=== PATIENT | female | born 1960 | race Caucasian/White ===

== ENCOUNTER → 2019-05-26 10:08 | Outpatient (CLI) | payer BC, SELFPAY ==
--- NOTE | ~2019-05-26 | DEXA_ITS ---
Bone Density Report Name: Mony Epstein Age: 59 Sex: Female Ethnicity: White Date of : 1960 Indication: postmenopausal; screening for osteoporosis; parental hip fracture; Referring Provider: JENNIFER FANG Study: Bone densitometry was performed. Exam Date: May 26, 2019 Accession number: [id number] Bone Density: Region BMD T-score Z-score Classification AP Spine (L1-L4) 0.938 -1.0 0.4 Normal Femoral Neck (Left) 0.726 -1.1 0.1 Osteopenia Total Hip (Left) 0.823 -1.0 -0.1 Normal Femoral Neck (Right) 0.710 -1.3 0.0 Osteopenia Total Hip (Right) 0.853 -0.7 0.2 Normal Total Hip Mean 0.838 -0.9 0.1 Normal World Health Organization criteria for BMD impression classify patients as: Normal (T-score at or above -1.0), Osteopenia (T-score between -1.0 and -2.5), or Osteoporosis (T-score at or below -2.5). 10-year Fracture Risk(1): Major Osteoporotic Fracture 14% Hip Fracture 0.5% Reported Risk Factors: [place] (), Neck BMD=0.710, BMI=25.5, parental fracture (1) FRAX(R) Version 3.08. Fracture probability calculated for an untreated patient. Fracture probability may be lower if the patient has received treatment. Previous Exams: Region Exam Age BMD T-score BMD Change BMD Change Date g/cm2 vs Baseline vs Previous AP Spine(L1-L4) 05/26/2019 59 0.938 -1.0 -0.075* -0.044* 01/08/2016 55 0.982 -0.6 -0.032* -0.032* 01/04/2014 53 1.013 -0.3 Total Hip(Left) 05/26/2019 59 0.823 -1.0 -0.025 -0.018 01/08/2016 55 0.841 -0.8 -0.008 -0.008 01/04/2014 53 0.849 -0.8 Total Hip(Right) 05/26/2019 59 0.853 -0.7 -0.038* -0.015 01/08/2016 55 0.868 -0.6 -0.023 -0.023 01/04/2014 53 0.891 -0.4 *Denotes significance at 95% confidence level, LSC for AP Spine = 0.022 g/cm2, LSC for Total Hip = 0.027 g/cm2 Clinical Information Provided by Patient: Parent has had a hip fracture Has used the following medications: Vitamin D Patient maximum height was 64.8 Menopause Age: 53 Drinks caffeinated beverages Onset of menses at age 13 Number of children 2 Impression: The patient has low bone mass, based on the Right Femoral Neck T-score. The patient has an estimated ten-year risk of hip fracture of 0.5% and an estimated ten-year risk of major fracture of 14%, based on the WHO FRAX algorithm. The patient has risk facto
--- NOTE | ~2019-05-26 | MM_ITS ---
EXAMINATION: MM screening abhi BI w [place] HISTORY: Screening mammogram TECHNIQUE: Craniocaudal and mediolateral oblique 3-D tomosynthesis images were obtained and synthetic 2-D images were generated. CAD analysis was submitted and interpreted. COMPARISON: 04/07/2018 bilateral digital screening mammogram 10/22/2017 and 04/01/2017 diagnostic right digital mammogram and limited right breast ultrasound examin ations 03/13/2017, 03/05/2016, 01/12/2015 bilateral digital screening mammogram examinations BREAST PARENCHYMAL COMPOSITION: There are scattered areas of fibroglandular density. FINDINGS: Stable mild fibroglandular asymmetry. There is a 5.7 x 8.5 mm circumscribed opacity situated posteriorly in the mid to upper right breast o n MLO view diagnostic right mammogram is recommended, as well as ultrasound examination. Otherwise there is no evidence of suspicious mass, calcification, or architectural distortion to sugg est malignancy in either breast. There has been no other suspicious interval change. IMPRESSION: 1. Right breast mass. 2. Diagnostic right mammogram and right breast ultrasound examination are recommended BI-RADS Category 0: Incomplete: Needs additional imaging evaluation. Reviewed, dictated and finalized at location A. AULIC STRAINER OPERATOR IMPRESSION: 1. Right breast mass. 2. Diagnostic right mammogram and right breast ultrasound examination are recom mended BI-RADS Category 0: Incomplete: Needs additional imaging evaluation.
== END ==
PROVIDERS: PCP Family Medicine; Visit Provider Obstetrics & Gynecology Gynecology
DX: Z12.31 Encounter for screening mammogram for malignant neoplasm of breast (principal); Z78.0 Asymptomatic menopausal state; R92.8 Other abnormal and inconclusive findings on diagnostic imaging of breast; M85.852 Other specified disorders of bone density and structure, left thigh; M85.851 Other specified disorders of bone density and structure, right thigh
CPT/HCPCS: 77063; 77067; 77080

== ENCOUNTER → 2019-06-10 09:05 | Outpatient (CLI) | payer BC, SELFPAY ==
--- NOTE | ~2019-06-10 | MMUS_ITS ---
EXAMINATION: MM diagnostic mammo unilat RT, US breast RT limited HISTORY: 5.7 x 8.5 mm circumscribed mammographic opacity noted posteriorly in the mid to upper outer right breast on 05/26/2019 screening mammogram examination TECHNIQUE: Additional 3-D tomosynthesis images of the right breast were performed and synthetic 2-D i mages were generated. CAD analysis was submitted and interpreted. High resolution targeted right [facility] ultrasound was performed. COMPARISON: 05/26/2019 bilateral digital screening mammogram FINDINGS: MAMMOGRAPHIC FINDINGS: An approximately 6 x 9 mm opacity is again suggested posteriorly in the outer mid right breast manager marketing communications iorly. The margins are relatively circumscribed. Ultrasound correlation was performed. ULTRASOUND: At 9:00 4 cm from the nipple there is a parallel circumscribed hypoechoic mass measuring 4 x 7.7 x 9. 3 mm, with some through-transmission. There is no internal vascularity or suspicious shadowing. IMPRESSION: 1. Probable benign 4 x 7.7 x 9.3 mm circumscribed hypoechoic mass at 9:00 4 cm from nipple 2. 6 month diagnostic right mammogram and targeted right breast ultrasound follow-up are recommended. BI-RADS category 3, probably benign findings. Reviewed, dictated and finalized at location A. ERY CHARGER TESTER IMPRESSION: 1. Probable benign 4 x 7.7 x 9.3 mm circumscribed hypoechoic mass at 9:00 4 cm from nipple 2. 6 month diagnostic right mammogram and targeted right breast ultrasound foll ow-up are recommended. BI-RADS category 3, probably benign findings.
== END ==
PROVIDERS: PCP Family Medicine; Visit Provider Obstetrics & Gynecology Gynecology
DX: N63.11 Unspecified lump in the right breast, upper outer quadrant (principal)
CPT/HCPCS: 76642; 77065

== ENCOUNTER → 2019-12-13 07:57 | Outpatient (CLI) | payer BC, SELFPAY ==
--- NOTE | ~2019-12-13 | MMUS_ITS ---
EXAMINATION: MM diagnostic abhi RT w [place], US breast RT complete HISTORY: Six-month follow-up of probable benign 4 x 7.7 x 9.3 mm circumscribed hypoechoic mass at 9:0 0 4 cm from nipple TECHNIQUE: 3-D tomosynthesis full field and spot images of the right breast were performed and synthe tic 2-D images were generated. CAD analysis was submitted and interpreted. High resolution complete r ight breast ultrasound was performed. COMPARISON: 06/10/2019 diagnostic right digital mammogram and right Limited breast ultrasound BREAST PARENCHYMAL COMPOSITION: There are scattered areas of fibroglandular density. FINDINGS: MAMMOGRAPHIC FINDINGS: Again noted is an approximately 8 mm circumscribed mass posteriorly at approximately 9:00 position of right breast, appearing mammographically stable since 05/26/2019. There are occasional benign calcified microhematomas. ULTRASOUND: 3:00 4 cm from nipple: Parallel circumscribed 2.4 x 3.8 mm largely sonolucent lesion without suspicio us shadowing, most likely benign 9:00 4 cm from nipple: Parallel circumscribed hypoechoic solid lesion measuring approximately 3.8 x 8 .4 x 8.2 mm, without suspicious shadowing; this appears relatively stable since 06/10/2019; six-month follow-up right 9:00 targeted breast ultrasound examination is recommended. 11:00 subareolar area: Parallel circumscribed hypoechoic approximately 2.2 x 3.2 mm lesion without in ternal vascularity or suspicious shadowing IMPRESSION: 1. Approximately 8.4 mm mass at 9:00 4 cm from nipple, relatively stable since 06/10/2019. 2. 6 month follow-up targeted 9:00 ultrasound is recommended. BI-RADS category 3, probably benign findings. Reviewed, dictated and finalized at location A. IMPRESSION: 1. Approximately 8.4 mm mass at 9:00 4 cm from nipple, relatively stable since 06/10/2019. 2. 6 month follow-up targeted 9:00 ultrasound is recommended. BI-RADS category 3, probably benign findings.
== END ==
PROVIDERS: PCP Family Medicine; Visit Provider Obstetrics & Gynecology Gynecology
DX: R92.8 Other abnormal and inconclusive findings on diagnostic imaging of breast (principal)
CPT/HCPCS: 76641; 77061; 77065; G0279

== ENCOUNTER → 2020-06-20 07:38 | Outpatient (CLI) | payer BC, SELFPAY ==
--- NOTE | ~2020-06-20 | MMUS_ITS ---
EXAMINATION: MM diagnostic abhi BI w [place], US breast RT limited HISTORY: Six-month follow-up for probably benign right breast mass TECHNIQUE: Craniocaudal, mediolateral, and mediolateral oblique 3-D tomosynthesis images of the breas ts were performed and synthetic 2-D images were generated. CAD analysis was submitted and interpreted . High resolution limited right breast ultrasound was performed. COMPARISON: 12/13/2019, 06/10/2019, 05/26/2019, 04/07/2018, 10/02/2017, 04/01/2017 BREAST PARENCHYMAL COMPOSITION: There are scattered areas of fibroglandular density. FINDINGS: MAMMOGRAPHIC FINDINGS: Right breast: There is a stable 8 mm obscured, equal density mass in the posterior third of the outer breast at the 9:00 location 6 cm from the nipple. Scattered benign-appearing calcifications are pres ent. There is no suspicious architectural distortion. Left breast: There is no evidence of suspicious mass, calcification, or architectural distortion to suggest malignancy. There has been no suspicious interval change. ULTRASOUND: A stable 9 mm x 4 mm oval, circumscribed, parallel, hypoechoic mass with no posterior features or int ernal vascularity is present at the 9:00 location 4 cm from the nipple. IMPRESSION: 1. Stable, probably benign right breast mass. 2. Given one year of interval stability, recommend 12 month followup right diagnostic mammogram and u ltrasound. BI-RADS category 3, probably benign findings. Reviewed, dictated and finalized at location A. NT CARE PHYSICIAN ASSISTANT IMPRESSION: 1. Stable, probably benign right breast mass. 2. Given one year of interval stability, recommend 12 month followup right diag nostic mammogram and ultrasound. BI-RADS category 3, probably benign findings.
== END ==
PROVIDERS: Visit Provider Obstetrics & Gynecology Gynecology
DX: R92.8 Other abnormal and inconclusive findings on diagnostic imaging of breast (principal)
CPT/HCPCS: 76642; 77062; 77066; G0279

== ENCOUNTER → 2021-06-22 08:39 | Outpatient (CLI) | payer BC, SELFPAY ==
--- NOTE | ~2021-06-22 | MMUS_ITS ---
EXAMINATION: MM diagnostic abhi BI w [place], US breast BI complete HISTORY: 12 month follow-up of right breast probably benign 9:00 mass; left breast screening TECHNIQUE: Full field and spot ML, MLO and CC 3-D tomosynthesis images of both breasts were performed and synthetic 2-D images were generated. CAD analysis was submitted and interpreted. High resolution complete bilateral breast ultrasound including all 4 quadrants and subareolar areas was performed. COMPARISON: June 20, 2020 bilateral diagnostic mammography and limited right breast ultrasound 12/13/2019 and June 10, 2019 diagnostic right mammogram and complete right breast ultrasound exami nations 05/26/2019, 04/07/2018 bilateral screening mammogram examinations BREAST PARENCHYMAL COMPOSITION: There are scattered areas of fibroglandular density. FINDINGS: MAMMOGRAPHIC FINDINGS: Stable opacity is noted in the posterior outer mid right breast. No interval suspicious mass, architectural distortion, malignant calcification, skin thickening or re traction of either breast is evident. Occasional benign calcifications. ULTRASOUND: No suspicious solid lesion or shadowing of either breast is detected. Right breast: 3:00 4 cm from nipple: 2.2 x 4 mm cyst 9:00 5 cm from nipple: 6.8 x 4.2 x 8.5 mm circumscribed hypoechoic lesion without internal vascularit y or posterior features, unchanged since June 20, 2020 Left breast: 9:00 subareolar: 2.9 x 4.5 x 4.1 mm cyst IMPRESSION: 1. Benign findings 2. Routine annual mammographic screening is recommended. BI-RADS Category 2: Benign finding(s). Reviewed, dictated and finalized at location A. EIN CHEMIST IMPRESSION: 1. Benign findings 2. Routine annual mammographic screening is recommended. BI-RADS Category 2: Benign finding(s).
== END ==
PROVIDERS: Visit Provider Obstetrics & Gynecology Gynecology
DX: R92.8 Other abnormal and inconclusive findings on diagnostic imaging of breast (principal)
CPT/HCPCS: 76641; 77062; 77066; G0279

== ENCOUNTER → 2021-08-08 10:54 | Outpatient (CLI) | payer BC, SELFPAY ==
--- NOTE | ~2021-08-08 | DEXA_ITS ---
Bone Density Report Name: JOVANI GRANT I Age: 61 Sex: Female Ethnicity: White Date of : 1960 Indication: postmenopausal; screening for osteoporosis; parental hip fracture; Referring Provider: JENNIFER FANG Study: Bone densitometry was performed. Exam Date: August 08, 2021 Accession number: [id number] Bone Density: Region BMD T-score Z-score Classification AP Spine (L1-L4) 0.945 -0.9 0.6 Normal Femoral Neck (Left) 0.687 -1.5 -0.1 Osteopenia Total Hip (Left) 0.805 -1.1 -0.1 Osteopenia Femoral Neck (Right) 0.662 -1.7 -0.3 Osteopenia Total Hip (Right) 0.834 -0.9 0.1 Normal Total Hip Mean 0.820 -1.0 0.0 Normal World Health Organization criteria for BMD impression classify patients as: Normal (T-score at or above -1.0), Osteopenia (T-score between -1.0 and -2.5), or Osteoporosis (T-score at or below -2.5). 10-year Fracture Risk(1): Major Osteoporotic Fracture 17% Hip Fracture 0.9% Reported Risk Factors: [place] (), Neck BMD=0.662, BMI=24.6, parental fracture (1) FRAX(R) Version 3.08. Fracture probability calculated for an untreated patient. Fracture probability may be lower if the patient has received treatment. Previous Exams: Region Exam Age BMD T-score BMD Change BMD Change Date g/cm2 vs Baseline vs Previous AP Spine(L1-L4) 08/08/2021 61 0.945 -0.9 -0.068* 0.007 05/26/2019 59 0.938 -1.0 -0.075* -0.044* 01/08/2016 55 0.982 -0.6 -0.032* -0.032* 01/04/2014 53 1.013 -0.3 Total Hip(Left) 08/08/2021 61 0.805 -1.1 -0.043* -0.018 05/26/2019 59 0.823 -1.0 -0.025 -0.018 01/08/2016 55 0.841 -0.8 -0.008 -0.008 01/04/2014 53 0.849 -0.8 Total Hip(Right) 08/08/2021 61 0.834 -0.9 -0.057* -0.019 05/26/2019 59 0.853 -0.7 -0.038* -0.015 01/08/2016 55 0.868 -0.6 -0.023 -0.023 01/04/2014 53 0.891 -0.4 *Denotes significance at 95% confidence level, LSC for AP Spine = 0.022 g/cm2, LSC for Total Hip = 0.027 g/cm2 Clinical Information Provided by Patient: Parent has had a hip fracture Has used the following medications: Vitamin D Patient maximum height was 64.8 Menopause Age: 53 Drinks caffeinated beverages Onset of menses at age 13 Number of children 2 Impression: The patient has low bone mass, based on the Right Femora
== END ==
PROVIDERS: PCP Nurse Practitioner; Visit Provider Obstetrics & Gynecology Gynecology
DX: Z78.0 Asymptomatic menopausal state (principal); M85.89 Other specified disorders of bone density and structure, multiple sites
CPT/HCPCS: 77080

== ENCOUNTER → 2022-06-25 07:14 | Outpatient (CLI) | payer BC, SELFPAY ==
--- NOTE | ~2022-06-25 | MM_ITS ---
EXAMINATION: MM screening abhi BI [place] HISTORY: Screening mammogram TECHNIQUE: Craniocaudal and mediolateral oblique 3-D tomosynthesis images were obtained and synthetic 2-D images were generated. CAD analysis was submitted and interpreted. COMPARISON: June 22, 2021 diagnostic bilateral mammogram and bilateral breast ultrasound examinat ion June 20, 2020 diagnostic bilateral mammogram and limited right breast ultrasound 12/13/2019 diagnostic right mammogram and complete right breast ultrasound 05/26/2019 bilateral screening mammogram examinations BREAST PARENCHYMAL COMPOSITION: There are scattered areas of fibroglandular density. FINDINGS: Stable circumscribed mass in the posterior outer mid right breast since 05/26/2019. Occasion al bilateral benign calcifications. There is no evidence of suspicious mass, calcification, or rachana ectural distortion to suggest malignancy in either breast. There has been no suspicious interval taylor ge. IMPRESSION: 1. No mammographic evidence of malignancy. 2. Recommend routine screening mammography in one year. BI-RADS Category 2: Benign finding(s). Reviewed, dictated and finalized at location A. ORIAL INTERN
== END ==
PROVIDERS: PCP Nurse Practitioner; Visit Provider Obstetrics & Gynecology Gynecology
DX: Z12.31 Encounter for screening mammogram for malignant neoplasm of breast (principal)
CPT/HCPCS: 77063; 77067

== ENCOUNTER 2023-09-01 09:53 | Outpatient (CLI) | payer BC, SELFPAY ==
--- NOTE | ~2023-09-01 | MM_ITS ---
EXAMINATION: MM screening [facility] BI w [place] HISTORY: Screening mammogram TECHNIQUE: Craniocaudal and mediolateral oblique 3-D tomosynthesis images were obtained and synthetic 2-D images were generated. CAD analysis was submitted and interpreted. COMPARISON: June 25, 2022 bilateral screening mammogram June 22, 2021 diagnostic bilateral mammogram and complete bilateral breast ultrasound examination June 20, 2020 diagnostic bilateral mammogram and limited right breast ultrasound BREAST PARENCHYMAL COMPOSITION: There are scattered areas of fibroglandular density. FINDINGS: Stable approximate 4 mm circumscribed low-density opacity in the left inferomedial periareo lar area anteriorly, with halo sign, stable since June 20, 2020, consistent with benign process, only a benign cyst. Stable circumscribed low density opacity in the posterior outer right breast. No suspicious mass, architectural distortion, malignant calcification, skin thickening or retraction or significant new or developing density since June 20, 2020 is detected. IMPRESSION: 1. Benign findings. No mammographic evidence of malignancy. 2. Recommend routine screening mammography in one year. BI-RADS Category 2: Benign finding(s). Reviewed, dictated and finalized at location A.
== END 2023-09-01 09:54 ==
LOC: MICIMG 09:54
PROVIDERS: PCP Obstetrics & Gynecology Gynecology; Visit Provider Obstetrics & Gynecology Gynecology
DX: Z12.31 Encounter for screening mammogram for malignant neoplasm of breast (principal)
CPT/HCPCS: 77063; 77067

== ENCOUNTER 2024-09-08 15:16 | Outpatient (CLI) | payer BC, SELFPAY ==
--- NOTE | ~2024-09-08 | MM_ITS ---
EXAMINATION: MM screening [facility] BI w [place] HISTORY: Screening TECHNIQUE: Craniocaudal and mediolateral oblique 3-D tomosynthesis images were obtained and synthetic 2-D images were generated. CAD analysis was submitted and interpreted. COMPARISON: Comparison to multiple prior studies sequentially, with oldest reviewed study dated 12/12. BREAST PARENCHYMAL COMPOSITION: Not dense: There are scattered areas of fibroglandular density. FINDINGS: There is no evidence of suspicious mass, calcification, or architectural distortion to sugg est malignancy in either breast. There has been no suspicious interval change. IMPRESSION: 1. No mammographic evidence of malignancy. 2. Recommend routine screening mammography in one year. BI-RADS Category 1: Negative Reviewed, dictated and finalized at location A.
== END 2024-09-08 15:17 | disposition home or self-care (01) ==
LOC: MICIMG 15:18
PROVIDERS: PCP Obstetrics & Gynecology Gynecology; Visit Provider Obstetrics & Gynecology Gynecology
DX: Z12.31 Encounter for screening mammogram for malignant neoplasm of breast (principal)
CPT/HCPCS: 77063; 77067

== ENCOUNTER 2024-09-16 10:05 | Outpatient (CLI) | payer BC, SELFPAY ==
--- NOTE | ~2024-09-16 | DEXA_ITS ---
Bone Density Report Name: JOVANI GRANT I Age: 64 Sex: Female Ethnicity: White Date of : 1960 Indication: osteopenia; parental hip fracture; Referring Provider: JENNIFER FANG Study: Bone densitometry was performed. Exam Date: September 16, 2024 Accession number: [id number] Bone Density: Region BMD T-score Z-score Classification AP Spine(L1-L4) 0.892 -1.4 0.3 Osteopenia Femoral Neck (Left) 0.706 -1.3 0.2 Osteopenia Total Hip (Left) 0.794 -1.2 0.0 Osteopenia Femoral Neck (Right) 0.644 -1.9 -0.4 Osteopenia Total Hip (Right) 0.786 -1.3 -0.1 Osteopenia Total Hip Mean 0.790 -1.3 -0.1 Osteopenia World Health Organization criteria for BMD impression classify patients as: Normal (T-score at or above -1.0), Osteopenia (T-score between -1.0 and -2.5), or Osteoporosis (T-score at or below -2.5). 10-year Fracture Risk(1): Major Osteoporotic Fracture 19% Hip Fracture 1.4% Reported Risk Factors: [place] (), Neck BMD=0.644, BMI=24.3, parental fracture (1) FRAX(R) Version 3.08. Fracture probability calculated for an untreated patient. Fracture probability may be lower if the patient has received treatment. Previous Exams: -- Region Exam Age BMD T-score BMD Change BMD Change Date g/cm2 vs Baseline vs Previous -- AP Spine (L1-L4) 09/16/2024 64 0.892 -1.4 -12.0%* -5.6%* 08/08/2021 61 0.945 -0.9 -6.7%* 0.8% 05/26/2019 59 0.938 -1.0 -7.4%* -4.4%* 01/08/2016 55 0.982 -0.6 -3.1%* -3.1%* 01/04/2014 53 1.013 -0.3 Total Hip(Left) 09/16/2024 64 0.794 -1.2 -6.4%* -1.4% 08/08/2021 61 0.805 -1.1 -5.1%* -2.2% 05/26/2019 59 0.823 -1.0 -3.0% -2.1% 01/08/2016 55 0.841 -0.8 -0.9% -0.9% 01/04/2014 53 0.849 -0.8 Total Hip(Right) 09/16/2024 64 0.786 -1.3 -11.8%* -5.7%* 08/08/2021 61 0.834 -0.9 -6.4%* -2.3% 05/26/2019 59 0.853 -0.7 -4.3%* -1.8% 01/08/2016 55 0.868 -0.6 -2.5% -2.5% 01/04/2014 53 0.891 -0.4 -- *Denotes significance at 95% confidence level, LSC for AP Spine = 0.022 g/cm2, LSC for Total Hip = 0.027 g/cm2 Clinical Information Provided by Patient: Parent has had a hip fracture Has used the following medications: HRT (i.e. estrogen/hormone therapy), Vitamin D, Calcium, vaginal insert Patient maximum height was 64.75 Menopause Age: 51 Drinks caffeinated beverages Onset of menses at age 13 Number of children 2 Impression: The patient has low bone mass, based on the Right Femoral Neck T-score. The patient has an estimated ten-year risk of hip fracture of 1.4% and an estimated ten-year risk of major fracture of 19%, based on the WHO FRAX algorithm. The patient has risk factors, including: parental hip fracture. The BMD for the AP Spine (L1-L4) decreased, changing by -5.6% since the last DXA exam. The BMD for the Total Hip(Right) decreased, changing by -5.7% since the last DXA exam. Discussion: BONE DENSITY IS LOW AT ONE OR MORE SKELETAL SITES. This patient's lowest T-score is low at one or more skeletal sites. It meets the World Health Organization's (WHO) criteria for ?low bone mass? (T-score between -1.0 and -2.5). The patient's 10-year risk of fracture as calculated by FRAX is less than the threshold where pharmacological therapy is recommended by the National Osteoporosis Foundation (NOF). However, all treatment decisions require clinical judgment and consideration of individual patient factors, including patient preferences, comorbidities, previous drug use, risk factors not captured in the FRAX model (e.g., frailty, falls, vitamin D deficiency, increased bone turnover, interval significant decline in bone density) and possible under or overestimation of fracture risk by FRAX. The patient should follow a healthful lifestyle (good nutrition with adequate calcium and vitamin D, and appropriate weight-bearing exercise). Follow-Up: Consider repeating this study in 2 years to reassess this patient's status, or sooner if there is some new clinical indication. Reported by: NITISH on 09/16/2024 10:29:00 AM. Reviewed, dictated and finalized at location A.
== END 2024-09-16 10:06 | disposition home or self-care (01) ==
LOC: MICIMG 10:06
PROVIDERS: PCP Obstetrics & Gynecology Gynecology; Visit Provider Obstetrics & Gynecology Gynecology
DX: M85.89 Other specified disorders of bone density and structure, multiple sites (principal); Z78.0 Asymptomatic menopausal state
CPT/HCPCS: 77080